=== PATIENT | female | born 1940 | race Two or more races ===

== ENCOUNTER 2021-04-20 17:58 | Inpatient (IN) | payer OTHER ==
[~2021-04-20] VITALS: Ht 152.4 cm; Wt 73.0 kg
[2021-04-20 18:24] LABS: Basophils # (auto) 0.1 10 ^3/uL (0-0.2); Basophils % (auto) 1.1 % (0.0-2.0); Eosinophils # (auto) 0.2 10 ^3/uL (0-0.8); Eosinophils % (auto) 2.3 % (0.0-7.0); Hematocrit 44.5 % (36.0-46.0); Hemoglobin 15.3 g/dL (12.2-16.2); Lymphocytes # (auto) 2.4 10 ^3/uL (0.4-5.4); Lymphocytes % (auto) 37.2 % (10.0-50.0); Mean Corpuscular Hemoglobin 31.5 pg (28.0-32.0); Mean Corpuscular Hgb Conc. 34.4 g/dL (32.0-36.0); Mean Corpuscular Volume 91.3 fL (80.0-100.0); Monocytes # (auto) 0.5 10 ^3/uL (0-1.3); Monocytes % (auto) 7.1 % (0.0-12.0); Neutrophils # (auto) 3.4 10 ^3/uL (1.6-8.6); Neutrophils % (auto) 52.3 % (37.0-80.0); Red Blood Cells 4.87 10^6/uL (4.0-5.20); Red Cell Distribution Width 13.3 % (11.8-14.3); White Blood Cell 6.6 10^3/uL (4.4-10.8)
[2021-04-20 18:42] LABS: Calcium 9.6 mg/dL (8.5-10.1); Potassium 3.5 mmol/L (3.5-5.1)
[2021-04-20 18:48] LABS: BUN/Creatinine Ratio 15.9; Bilirubin, Total 0.6 mg/dL (0.2-1.0); Total Protein 7.5 g/dL (6.4-8.2)
[2021-04-20] MEDS ORDERED: ASPirin 325 MG TAB PO ONE (19:00)
[2021-04-20] MEDS ORDERED: FAMOTIDINE (10MG/ML) 2ML VL IV ONE (19:00)
[2021-04-20] MEDS ORDERED: HEPARIN SODIUM (PORCINE) 5000 UNITS/ML 1ML VIAL IV STA (19:29)
[2021-04-20] MEDS ORDERED: HEPARIN DRIP/D5W 100UNITS/ML 250 ML IV SCH (20:30)
[2021-04-20] MEDS ORDERED: ONDANSETRON HCL 4 MG/2 ML VIAL IV PRN (21:15)
[2021-04-20] MEDS ORDERED: ACETAMINOPHEN 325 MG TAB PO PRN (21:15)
[2021-04-20] MEDS ORDERED: cloNIDine HCL 0.1 MG TAB PO PRN (21:15)
[2021-04-20] MEDS ORDERED: MORPHINE SULFATE INJECTION 2 MG/ML SYRG IV PRN (21:15)
[2021-04-20] MEDS ORDERED: NITROGLYCERIN 0.4 MG SL TAB SL PRN (21:15)
[2021-04-20 22:46] LABS: Magnesium 2.7 mg/dL (1.6-2.6)
[2021-04-20 22:56] LABS: INR 1.08 (0.9-1.15)
[2021-04-20 22:58] LABS: Partial Thromboplastin Time 136.1 sec (23.6-33.0)
[2021-04-20] MEDS: ATORVASTATIN 20 MG TAB PO SCH (23:06)
[2021-04-21 06:55] LABS: BUN/Creatinine Ratio 21.1; Calcium 8.9 mg/dL (8.5-10.1); Potassium 3.1 mmol/L (3.5-5.1)
[2021-04-21 07:25] LABS: Basophils # (auto) 0.1 10 ^3/uL (0-0.2); Basophils % (auto) 0.9 % (0.0-2.0); Eosinophils # (auto) 0.1 10 ^3/uL (0-0.8); Eosinophils % (auto) 2.2 % (0.0-7.0); Hematocrit 41.1 % (36.0-46.0); Hemoglobin 14.1 g/dL (12.2-16.2); Lymphocytes # (auto) 2.5 10 ^3/uL (0.4-5.4); Lymphocytes % (auto) 36.5 % (10.0-50.0); Mean Corpuscular Hemoglobin 31.3 pg (28.0-32.0); Mean Corpuscular Hgb Conc. 34.2 g/dL (32.0-36.0); Mean Corpuscular Volume 91.7 fL (80.0-100.0); Monocytes # (auto) 0.8 10 ^3/uL (0-1.3); Monocytes % (auto) 11.8 % (0.0-12.0); Neutrophils # (auto) 3.3 10 ^3/uL (1.6-8.6); Neutrophils % (auto) 48.6 % (37.0-80.0); Nucleated Red Blood Cells % 0.1 %; Red Blood Cells 4.49 10^6/uL (4.0-5.20); Red Cell Distribution Width 13.1 % (11.8-14.3); White Blood Cell 6.8 10^3/uL (4.4-10.8)
[2021-04-21 07:32] LABS: INR 1.05 (0.9-1.15); Partial Thromboplastin Time 65.2 sec (23.6-33.0)
[2021-04-21] MEDS ORDERED: ADENOSINE 59 MG in GIVE UN-DILUTED 0 ML IV STA (09:48)
[2021-04-21 11:36] VITALS: BP 178/80
[2021-04-21 13:00] VITALS: BP 171/74
[2021-04-21] MEDS: ASPirin 81 mg TAB PO SCH (14:10)
[2021-04-21] MEDS: PANTOPRAZOLE 40 MG TAB PO SCH (14:10)
[2021-04-21] MEDS ORDERED: POTASSIUM EFFERVESENT TAB 25 MEQ PO ONE (16:15)
[2021-04-21 17:00] VITALS: BP 152/70
[2021-04-21 22:00] VITALS: BP 143/63
[2021-04-21] MEDS: ATORVASTATIN 20 MG TAB PO SCH (22:22)
[2021-04-22 05:00] VITALS: BP 132/52
[2021-04-22 09:00] VITALS: BP 149/58
[2021-04-22] MEDS: PANTOPRAZOLE 40 MG TAB PO SCH (09:31)
[2021-04-22] MEDS: ASPirin 81 mg TAB PO SCH (09:31)
[2021-04-22] MEDS ORDERED: LOSARTAN POTASSIUM 25 MG TAB PO ONE (11:30)
[2021-04-22] MEDS ORDERED: ATOR20TA50 PO (11:56)
[2021-04-22] MEDS ORDERED: ASPI1CHW15 PO (11:56)
[2021-04-22] MEDS ORDERED: LOSA25TA38 PO (11:56)
[2021-04-22] MEDS ORDERED: AML5T PO (11:56)
[2021-04-22 13:00] VITALS: BP 180/72
[2021-04-22 17:00] VITALS: BP 152/72
== END 2021-04-22 18:58 | disposition home health service (06) | DRG 282 ==
LOC: ER 17:58 → TELE 21:13 → TELE-CENTR 04-21 09:05
PROVIDERS: ADMIT Nurse Practitioner; ATTEND Internal Medicine
DX: I21.4 Non-ST elevation (NSTEMI) myocardial infarction (principal); E11.9 Type 2 diabetes mellitus without complications; E87.6 Hypokalemia; I10 Essential (primary) hypertension; E66.01 Morbid (severe) obesity due to excess calories; Z20.822 Contact with and (suspected) exposure to COVID-19; Z68.31 Body mass index [BMI] 31.0-31.9, adult; Z90.710 Acquired absence of both cervix and uterus
CPT/HCPCS: 36415; 71045; 78452; 80048; 80053; 83735; 83880; 84484; 85025; 85379; 85610; 85730; 87426; 93005; 93017; 93306; 96365; 96375; G0378; J0153; J3490

== ENCOUNTER 2024-03-26 14:43 | Emergency (ER) | payer OTHER ==
[~2024-03-26] VITALS: Ht 152.4 cm; Wt 73.7 kg
[~2024-03-26 14:43] MED LIST: AML5T PO; ASPI-736 PO; ATOR20TA50 PO; LOSA-533 PO
[2024-03-26 14:51] VITALS: BP 154/64; PULSE 77; RESP 20; TEMP 98; O2SAT 99
== END 2024-03-26 16:26 | disposition left against medical advice (07) ==
LOC: ER 14:43
DX: M79.89 Other specified soft tissue disorders (principal); M79.645 Pain in left finger(s); Z53.21 Procedure and treatment not carried out due to patient leaving prior to being seen by health care provider

== ENCOUNTER 2025-02-25 11:09 | Outpatient (CLI) | payer OTHER, MEDICAID ==
[~2025-02-25] VITALS: Ht 144.8 cm; Wt 72.6 kg
[2025-02-25] MEDS: REGADENOSON 0.4 MG/5 ML SYRG IV ONE ×2 (12:47)
--- NOTE | 2025-03-04 17:50 | DVHSR ---
APPROVED REPORT Exam: Nuclear Stress Test BMI: 0 Stress Test Details Stress Test: Pharmacologic stress testing performed using 0.4 mg of regadenoson per 5 mL given IV over 10 seconds. HR Resting HR: 73 bpm Max Heart Rate (APMHR): 138.883180 bpm Max HR Achieved: 94 bpm Target HR (85% APMHR): 117.908771 bpm % of APMHR: 68.12 Recovery HR: 90 bpm BP Resting BP: 148/59 mmHg Recovery BP: 137/71 mmHg ECG Resting ECG: Sinus Rhythm Clinical Reason for Termination: Completed protocol Nurse Comments Recieved pt. from [facility]. A/Ox4 on RA. Connected to rn cardiac cath, VS stable. PIV flushes well. Reviewed POC. Pt. verbalized understanding of procedure including risks and side effects, agrees for stress testing. Lexiscan stress test performed per protocol. [facility] tech administered Cardiolite. Pt. tolerated well. Pt. stable, no change on exam. VS returned to baseline. Transferred to [facility] via wheelchair w/ tech. Stress ECG Conclusion mild ifnerolateral wall ischemia lvef 60% minor st depressions 1/2 mm on stress portion NM EXAM: Myocardial Perfusion REST/STRESS Imaging Protocol: Rest Tc-99m/Stress Tc-99m 1 day Resting Data Rest SPECT myocardial perfusion imaging was performed in supine position 60 minutes following the intravenous injection of 9.5 mCi of Tc-99m Sestamibi. Time of rest injection: 11:30 Date: 02/25/2025 Time of rest imagin:30 Date: 02/25/2025 Administration Route: IV Administration Site: Right Arm Pharmacologic Stress Pharmacologic stress test was performed by injecting Regadenoson 0.4 mg IV push followed by the intravenous injection of 30.0 mCi of Tc-99m Sestamibi. Time of stress injection: 12:50 Date: 02/25/2025 Time of stress imagin:50 Date: 02/25/2025 Administration Route: IV Administration Site: Right Arm Gated Stress SPECT was performed 60 minutes after stress injection. The images were gated to evaluate regional wall motion and calculate left ventricular ejection fraction. Stress only was performed in the Supine position. Nuclear Conclusion Nuclear Findings: positive for ischemia mild ifnerolateral wall ischemia lvef 60% minor st depressions 1/2 mm on stress portion
== END 2025-02-25 17:00 | disposition home or self-care (01) ==
LOC: XYW 11:09
PROVIDERS: ATTEND Internal Medicine
DX: R07.9 Chest pain, unspecified (principal)
CPT/HCPCS: 93017; J2785; 78452